=== PATIENT | female | born 1995 | race Caucasian/White ===

== ENCOUNTER 2017-10-02 13:20 | Emergency (ER) | payer OTHER ==
[~2017-10-02] VITALS: Ht 147.3 cm; Wt 59.0 kg
[2017-10-02 13:39] VITALS: BP 136/84
--- NOTE | 2017-10-02 14:38 | PHYS DOC ---
Past History Past Medical History: No Pertinent History Past Surgical History: No Surgical History Smoking: Non-smoker Alcohol Use: None Drug Use: None Adult General Chief Complaint Chief Complaint: FOREIGN BODY VAGINA HPI HPI Patient is a pleasant 22-year-old female who presents stating that she believes she has a tampon in her vagina. She states that she placed a tampon last night before work and forgot about it and when she woke up noticed that she was not having any vaginal bleeding. She then presented in another tampon and felt like maybe there is a second tampon stuck inside. She states that she is about 70% sure there is an extra tampon. She has no fevers or chills, nausea or vomiting, abdominal pain, vaginal discharge, back or rectal pain. She is alert and oriented 4, calm, and appears to be in no distress at this time. Review of Systems Review of Systems Constitutional: Denies fever or chills [] Eyes: Denies change in visual acuity, redness, or eye pain [] HENT: Denies nasal congestion or sore throat [] Respiratory: Denies cough or shortness of breath [] Cardiovascular: No additional information not addressed in HPI [] GI: Denies abdominal pain, nausea, vomiting, bloody stools or diarrhea [] : Possible vaginal foreign body Musculoskeletal: Denies back pain or joint pain [] Integument: Denies rash or skin lesions [] Neurologic: Denies headache, focal weakness or sensory changes [] Endocrine: Denies polyuria or polydipsia [] All other systems were reviewed and found to be within normal limits, except as documented in this note. Allergies Allergies Allergies Coded Allergies Type Severity Reaction Last Updated Verified No Known Drug Allergies 06/24/14 No Physical Exam Physical Exam Constitutional: Well developed, well nourished, no acute distress, non-toxic appearance. [] HENT: Normocephalic, atraumatic, bilateral external ears normal, oropharynx moist, no oral exudates, nose normal. [] Eyes: PERRLA, EOMI, conjunctiva normal, no discharge. [] Neck: Normal range of motion, no tenderness, supple, no stridor. [] Cardiovascular:Heart rate regular rhythm, no murmur [] Lungs & Thorax: Bilateral breath sounds clear to auscultation [] Abdomen: Bowel sounds normal, soft, no tenderness, no masses, no pulsatile masses. [] Pelvic exam performed with nurse Ashley present however no retained foreign body visualized after the patient removed her 1 tampon. No active bleeding or discharge noted, no tenderness Skin: Warm, dry, no erythema, no rash. [] Back: No tenderness, no CVA tenderness. [] Extremities: No tenderness, no cyanosis, no clubbing, ROM intact, no edema. [] Neurologic: Alert and oriented X 3, normal motor function, normal sensory function, no focal deficits noted. [] Psychologic: Affect normal, judgement normal, mood normal. [] Current Patient Data Vital Signs Vital Signs Date Time Temp Pulse Resp B/P (MAP) Pulse Ox O2 Delivery O2 Flow Rate FiO2 10/02/17 13:39 98.6 66 22 98 EKG EKG [] Radiology/Procedures Radiology/Procedures [] Course & Med Decision Making Course & Med Decision Making Pertinent Labs and Imaging studies reviewed. (See chart for details) [] Dragon Disclaimer Dragon Disclaimer This electronic medical record was generated, in whole or in part, using a voice recognition dictation system. Departure Departure: Impression: Primary Impression: Feared condition not demonstrated Disposition: HOME, SELF-CARE Condition: STABLE Referrals: TRENTON NUNN APRN (PCP) Patient Instructions: Vaginal Foreign Body, [id number] Additional Instructions: No foreign body was visualized or found. It is unlikely but possible there is a retained tampon so if you feel pelvic pain, have fevers or chills, or have other new or worsening symptoms is very important that he follow-up with your OB /OFFICE MESSENGER HELPER. You can also return to the emergency Department immediately for new or worsening symptoms. CHARLOTTE HAWKINS DO Oct 02, 2017 14:38
== END 2017-10-02 14:30 | disposition home or self-care (01) ==
LOC: ER 13:20
DX: Z71.1 Person with feared health complaint in whom no diagnosis is made (principal)
CPT/HCPCS: 99283

== ENCOUNTER 2019-04-25 00:25 | Emergency (ER) | payer MEDICAID, OTHER ==
[~2019-04-25] VITALS: Ht 149.9 cm; Wt 81.6 kg
--- NOTE | 2019-04-25 00:32 | PHYS DOC ---
Past History Past Medical History: No Pertinent History Past Surgical History: No Surgical History Smoking: Non-smoker Alcohol Use: None Drug Use: None Adult General Chief Complaint Chief Complaint: ".. My Lt ear has really started hurting the last 2 to 3 days.. I have been cleaning my ears... with debrox.. and Q tips..." HPI HPI Patient is a 23 year old female who presents with above hx and complaints of Lt ear pain. Patient has been cleaning ears with Q-tips and D peroxide. Patient denies any ill contacts, travel, or trauma. No history immunosuppression. Patient denies any hearing loss. Patient not currently following with her primary care. Review of Systems Review of Systems Constitutional: Denies fever or chills [] Eyes: Denies change in visual acuity, redness, or eye pain [] HENT: Denies nasal congestion or sore throat []. Patient complaining of left ear pain Respiratory: Denies cough or shortness of breath [] Cardiovascular: No additional information not addressed in HPI [] GI: Denies abdominal pain, nausea, vomiting, bloody stools or diarrhea [] : Denies dysuria or hematuria [] Musculoskeletal: Denies back pain or joint pain [] Integument: Denies rash or skin lesions [] Neurologic: Denies headache, focal weakness or sensory changes [] Endocrine: Denies polyuria or polydipsia [] All other systems were reviewed and found to be within normal limits, except as documented in this note. Family History Family History Noncontributory Current Medications Current Medications See nursing for home medications Allergies Allergies Allergies Coded Allergies Type Severity Reaction Last Updated Verified No Known Drug Allergies 06/24/14 No Physical Exam Physical Exam Constitutional: Mild distress, non-toxic appearance. [] HENT: Normocephalic, atraumatic, bilateral external ears have S correlation/abrasions from cleaning, does have bilateral earwax. Does have an inflamed left TM .Oropharynx moist, no oral exudates, nose normal. [] Eyes: PERRLA, EOMI, conjunctiva normal, no discharge. [] Neck: Normal range of motion, no tenderness, supple, no stridor. [] Cardiovascular:Heart rate regular rhythm, no murmur [] Lungs & Thorax: Bilateral breath sounds equal at apex on auscultation [] Abdomen: Bowel sounds normal, soft, no tenderness, no masses, no pulsatile masses. [] Skin: Warm, dry, no erythema, no rash. [] Back: No tenderness, no CVA tenderness. [] Extremities: No tenderness, no cyanosis, no clubbing, ROM intact, no edema. [] Neurologic: Alert and oriented X 3, normal motor function, normal sensory function, no focal deficits noted. [] Psychologic: Affect anxious, judgement normal, mood normal. [] EKG EKG [] Radiology/Procedures Radiology/Procedures [] Course & Med Decision Making Course & Med Decision Making Pertinent Labs and Imaging studies reviewed. (See chart for details) May discontinue usage D peroxide eardrops as directed in both ears. Must stop using Q-tips in ears. Patient has excoriated ear canals. Use Cortisporin drops 1-2 both ears 4 times a day. Take Keflex 500 mg 3 times a day. Tylenol and ibuprofen for pain. Follow-up primary care. Return if any concerns. [] Impression- 1. Bilateral ear canal abrasions- apparently from the aggressive cleaning 2.Left ear pain and otitis Dragon Disclaimer Dragon Disclaimer This electronic medical record was generated, in whole or in part, using a voice recognition dictation system. Departure Departure: Disposition: 01 HOME/RESIDENCE PRIOR TO ADM Condition: STABLE Referrals: PCP,NO (PCP) Scripts Cephalexin (KEFLEX) 500 Mg Capsule 500 MG PO TID for Otitis media for 7 Days, BOTTLE Prov: MARK PELAEZ MD 04/25/19 Dragadrianna Disclaimer This chart was dictated in whole or in part using Voice Recognition software in a busy, high-work load, and often noisy Emergency Department environment. It may contain unintended and wholly unrecognized errors or omissions. Dragon Disclaimer This chart was dictated in whole or in part using Voice Recognition software in a busy, high-work load, and often noisy Emergency Department environment. It may contain unintended and wholly unrecognized errors or omissions. MARK PELAEZ MD Apr 25, 2019 00:32
[2019-04-25 00:37] VITALS: BP 128/82
[2019-04-25] MEDS ORDERED: CEPHALEXIN 250 MG CAPSULE ONE (00:44)
[2019-04-25] MEDS ORDERED: oxyCODONE/APAP 5/325 1 TAB TABLET ONE (00:45)
[2019-04-25] MEDS ORDERED: NEOMYCIN/POLYMYXIN/HC OTIC SUSPENSION 10ML BOTTLE. ONE (00:45)
[2019-04-25] MEDS ORDERED: CEPH-264 PO (00:46)
[2019-04-25] MEDS ORDERED: CEPHALEXIN 250 MG CAPSULE PO ONE (01:00)
[2019-04-25] MEDS ORDERED: diphenhydrAMINE HCL 25 MG CAPSULE PO ONE (01:00)
[2019-04-25] MEDS ORDERED: oxyCODONE/APAP 5/325 1 TAB TABLET PO ONE (01:00)
[2019-04-25] MEDS ORDERED: NEOMYCIN/POLYMYXIN/HC OTIC SUSPENSION 10ML BOTTLE. AU ONE (01:00)
== END 2019-04-25 00:59 | disposition home or self-care (01) ==
LOC: ER 00:25
DX: S00.412A Abrasion of left ear, initial encounter (principal); S00.411A Abrasion of right ear, initial encounter; H66.92 Otitis media, unspecified, left ear; X58.XXXA Exposure to other specified factors, initial encounter; Y93.89 Activity, other specified; Y92.89 Other specified places as the place of occurrence of the external cause; Y99.8 Other external cause status
CPT/HCPCS: 99284; Q0163